=== PATIENT | female | born 1970 | race Caucasian/White ===

== ENCOUNTER → 2016-09-15 | Outpatient (CLI) | payer MEDICARE, MEDICAID | END | disposition home or self-care (01) | LOC: LAB 12:00 | PROVIDERS: ATTEND Psychiatry & Neurology Psychiatry | DX: F31.9 Bipolar disorder, unspecified (principal); F41.0 Panic disorder [episodic paroxysmal anxiety]; F09 Unspecified mental disorder due to known physiological condition ==

== ENCOUNTER 2017-01-24 19:34 | Emergency (ER) | payer MEDICARE, MEDICAID ==
[~2017-01-24 19:34] MED LIST: GENTAMICIN 0.3% OPHTH OINT 1 APPLIC ONE
[2017-01-24] MEDS ORDERED: SODIUM CHLORIDE 0.9% (FLUSH) 10 ML SYG IV PRN (19:52)
[2017-01-24] MEDS ORDERED: NITROGLYCERIN 0.4 MG 25 EA TAB SL ONE (19:52)
[2017-01-24] MEDS ORDERED: ASPIRIN TABLET 325 MG TAB PO ONE (19:52)
[2017-01-24] MEDS ORDERED: ONDANSETRON INJ 4 MG/2 ML VIAL IV ONE (19:52)
--- NOTE | 2017-01-24 20:13 | RAD ---
EXAM DESCRIPTION: Chest,1 View CLINICAL HISTORY: 46 years Female chest pain since this a.m., left shoulder pain COMPARISON: 06/19/2013 FINDINGS: The cardiomediastinal silhouette appears unremarkable. No consolidating infiltrates or pleural effusions. No pneumothorax. Poor degree of inspiration with a small amount of compressive atelectasis in the lung bases. IMPRESSION: Poor degree of inspiration with small amount of basilar atelectasis Electronically signed by: Tameka Beltran 01/24/2017 8:11 PM CDT
[2017-01-24] MEDS ORDERED: SODIUM CHLORIDE 0.9% 1000ML 1,000 ML IVS ONE (22:09)
--- NOTE | 2017-01-24 22:11 | ED.PDOC ---
History of Present Illness - General Chief Complaint: Chest Pain/TX Stated Complaint: chest pain, n/v Time Seen by Provider: 01/24/17 21:58 Source: patient Exam Limitations: no limitations - History of Present Illness Initial Comments: Ally Campbell 46 y/o female with history of MARIAMA-,bipolar Schizoaffective disorder ptsd stated that she had onset of sharp chest pains intermittent w/c started at 10 am today while at home resting went to [employer] but unable to wait then drove back here accompanied by a friend.Denies diaphoresis ,sob ,n/ v Timing/Duration: 7-24 hours, intermittent Severity/Quality: moderate, sharp Location: other - left side Chest Pain Radiation: arms - left Activities at Onset: emotional stress Prior Chest Pain/Cardiac Workup: no prior chest pain, no prior cardiac workup Improving Factors: nothing Worsening Factors: nothing Nitro Today/Relief: no nitro taken today Aspirin Treatment Today: no aspirin today Associated Symptoms: denies symptoms Allergies/Adverse Reactions: Allergies Penicillins Allergy (Verified 01/24/17 20:22) Home Medications: Ambulatory Orders Hardy 12/01/14 Seroquel 12/01/14 Xanax 12/01/14 Review of Systems - Review of Systems Constitutional: States: no symptoms reported EENTM: States: no symptoms reported Respiratory: States: no symptoms reported Cardiology: States: see HPI Genitourinary: States: no symptoms reported Musculoskeletal: States: no symptoms reported Skin: States: no symptoms reported Neurological: States: anxiety, emotional problems Endocrine: States: no symptoms reported Hematologic/Lymphatic: States: no symptoms reported Past Medical History (General) - Patient Medical History Hx Asthma: No Hx Cardiac Disorders: No Hx Congestive Heart Failure: No Hx Diabetes: No Hx Other PMH: Yes - PTSD,Bipolar,Schizoaffective disorder;MARIAMA Surgical History: cholecystectomy, Hysterectomy, other - hysterectomy,hernia hiatal repair - Vaccination History Hx Tetanus, Diphtheria Vaccination: No Hx Influenza Vaccination: No Hx Pneumococcal Vaccination: No Immunizations Up to Date: No - Social History Hx Tobacco Use: No Hx Alcohol Use: No Hx Substance Use: No Hx Substance Use Treatment: No Hx Depression: No Family Medical History - Family History Mother Family History: Unknown Hx Family Stroke: Yes - sister -brain aneurysm Hx Cardiac Disease: Yes - dad Physical Exam - Physical Exam General Appearance: Alert, Anxious, Comfortable, No apparent distress Eyes, Ears, Nose, Throat Exam: PERRL/EOMI, normal ENT inspection, TMs normal Neck: non-tender, full range of motion, supple, normal inspection Respiratory: chest non-tender, lungs clear, normal breath sounds, no respiratory distress Cardiovascular/Chest: normal peripheral pulses, regular rate, rhythm, no murmur Gastrointestinal/Abdominal: normal bowel sounds, non tender, soft, no organomegaly Extremity: normal range of motion, no pedal edema, no calf tenderness Neurologic: alert, oriented x 3 Skin Exam: normal color, warm/dry Lymphatic: no adenopathy Progress - Progress Progress: 01/24/17 22:23 Vital Signs - 8 hr 01/24/17 01/24/17 01/24/17 19:51 20:02 21:23 Temperature 97.1 F L Pulse Rate 75 75 Pulse Rate [ 75 72 68 left] Respiratory 16 18 18 Rate Blood Pressure 139/73 104/58 [left] O2 Sat by Pulse 92 L 94 L Oximetry 01/24/17 19:52 IV Care:Saline Lock per Protoc ONCE Telemetry .ONCE Sodium Chloride 0.9% (Flush) [Saline Flush Syringe] 10 ml IV PRN PRN EKG Assessment ONCE EKG Stat Pulse Ox Stat Pulse Oximetry Assessment DAILY 01/24/17 22:09 Sodium Chloride 0.9% 1000ML [Ns 1000 ml] 1,000 ml IVS ONCE Laboratory Results - last 24 hr 01/24/17 01/24/17 20:10 20:10 WBC 18.6 H RBC 5.34 Hgb 16.9 H Hct 50.0 H MCV 93.6 MCH 31.6 H MCHC 33.8 RDW 13.3 Plt Count 319 MPV 9.5 Absolute Neuts (auto) 12.10 H Absolute Lymphs (auto) 4.40 H Absolute Monos (auto) 1.70 H Absolute Eos (auto) 0.20 Absolute Basos (auto) 0.10 Neutrophils % 65.4 Lymphocytes % 23.5 Monocytes % 9.3 H Eosinophils % 1.1 Basophils % 0.7 PT 11.1 INR 0.980 PTT (SP) 31.7 D-Dimer, Quantitative < 230 Sodium 134 L Potassium 3.6 Chloride 100 L Carbon Dioxide 22 Anion Gap 15.6 BUN 12 Creatinine 0.72 BUN/Creatinine Ratio 16.7 Random Glucose 124 H Serum Osmolality 269.4 L Calcium 9.2 Magnesium 1.9 Creatine Kinase 80 CK-MB (CK-2) 0.9 CK-MB (CK-2) % Not Reportable Troponin I < 0.02 B-Natriuretic Peptide 9.0 01/24/17 22:26 Patient refusing more blood draw and giving urine sample wants to go home after telling her ekg was normal and cardiac enzymes normal - EKG/XRAY/CT EKG: Sinus, no ST T wave changes Comments: Heart rate-75 XRAY: chest - no effusion,no pneumothorax ,no consolidation Departure - Departure Clinical Impression: Chest pain Qualifiers: Chest pain type: unspecified Qualified Code(s): R07.9 - Chest pain, unspecified Time of Disposition: 22:28 Disposition: Left Against Medical Advice Condition: Fair Departure Forms: ED Discharge - Pt. Copy, Patient Portal Self Enrollment Referrals: CHAITANYA SUTTON [Primary Care Provider] - 1-2 Weeks Home Medications: Ambulatory Orders Hardy 12/01/14 Seroquel 12/01/14 Xanax 12/01/14 Additional Instructions: RETURN TO EMERGENCY ROOM NEEDED
[2017-01-24] MEDS ORDERED: hydrOXYzine PAMOATE 25 MG CAP PO ONE (22:25)
[2017-01-25] MEDS ORDERED: LIDOCAINE 2 % GEL 5 ML TUBE TOP ONE (00:13)
--- NOTE | 2017-01-25 01:56 | ED.PDOC ---
History of Present Illness - General Chief Complaint: Laceration Stated Complaint: laceration to rt eye Time Seen by Provider: 01/25/17 01:55 Source: patient Exam Limitations: no limitations - History of Present Illness Initial Comments: Ally Barnes 46 y/o female initally seen here tonight for chest pain symptoms but went home ama after a repeat blood test was requested declined further testing. Her cardiac enzymes and ekg were normal.Then as she was about to lay in bed she slipped and fell face down sustaining laceration on her right upper eyelid and cheeks. Timing/Duration: just prior to arrival, this evening Severity: moderate Location: face Improving Factors: nothing Worsening Factors: nothing Associated Symptoms: denies symptoms Allergies/Adverse Reactions: Allergies Penicillins Allergy (Verified 01/24/17 20:22) Home Medications: Ambulatory Orders Lester 12/01/14 Seroquel 12/01/14 Xanax 12/01/14 Review of Systems - Review of Systems Constitutional: States: no symptoms reported EENTM: States: see HPI Respiratory: States: no symptoms reported Cardiology: States: see HPI Gastrointestinal/Abdominal: States: no symptoms reported Genitourinary: States: no symptoms reported Musculoskeletal: States: no symptoms reported Skin: States: see HPI Neurological: States: anxiety, emotional problems Endocrine: States: no symptoms reported Past Medical History (General) - Patient Medical History Hx Asthma: No Hx Cardiac Disorders: No Hx Congestive Heart Failure: No Hx Diabetes: No Hx Other PMH: Yes - PTSD,MARIAMA,SCHIZOAFFECTIVE DISORDER Surgical History: cholecystectomy, other - hysterectomy,hiatal hernia repair - Vaccination History Hx Tetanus, Diphtheria Vaccination: No Hx Influenza Vaccination: No Hx Pneumococcal Vaccination: No - Social History Hx Tobacco Use: No Hx Alcohol Use: No Hx Substance Use: No Hx Substance Use Treatment: No Hx Depression: No Family Medical History - Family History Mother Family History: Unknown Hx Family Stroke: Yes - sister -brain aneurysm Hx Cardiac Disease: Yes - dad Physical Exam - Physical Exam General Appearance: Alert, Anxious, No apparent distress Eyes, Ears, Nose, Throat Exam: PERRL/EOMI, normal ENT inspection, TMs normal, pharynx normal, other - subconjunctival hemoorhage right eyeball VA-intact; no loose teeth Neck: non-tender, full range of motion, supple Cardiovascular/Chest: normal peripheral pulses, regular rate, rhythm, no murmur Respiratory: chest non-tender, lungs clear, normal breath sounds Gastrointestinal/Abdominal: normal bowel sounds, non tender, soft Extremity: normal range of motion, non-tender, no calf tenderness Neurologic: no motor/sensory deficits, alert, oriented x 3 Skin Exam: warm/dry, normal color Skin Problem Location: face - 3.5 cm laceration right cheek; 3 cm laceration right upper lid Skin Character: other - laceration Progress - Results/Orders Results/Orders: Vital Signs - 8 hr 01/25/ 01:47 Temperature 97.9 F Pulse Rate [ 69 left] Respiratory 22 Rate Blood Pressure 102/58 [left] O2 Sat by Pulse 96 Oximetry - EKG/XRAY/CT CT Ordered: Yes - face no orbital fracture Procedures - Laceration/Wound Repair Right Cheek Wound Length (cm): 3.5 - deep sq layer Wound's Depth, Shape: linear Wound Explored: no foreign body removed Irrigated w/ Saline (cc's): 30 Betadine Prep?: Yes Anesthesia: 1% Lidocaine Volume Anesthetic (cc's): 7 Wound Repaired With: sutures, steri-strips, dermabond Suture Size/Type: 5:0, vicryl rapide Number of Sutures: 5 Deep Layer Suture Size/Type: 5:0, vicryl rapide Number Deep Layer Sutures: 4 Sterile Dressing Applied?: Yes Right Eye Wound Length (cm): 3 Wound's Depth, Shape: into muscle, linear Wound Explored: no foreign body removed Irrigated w/ Saline (cc's): 20 Betadine Prep?: Yes Anesthesia: 1% Lidocaine Volume Anesthetic (cc's): 7 Wound Repaired With: sutures, steri-strips, dermabond Suture Size/Type: 5:0, vicryl rapide Number of Sutures: 2 Layer Closure?: Yes Deep Layer Suture Size/Type: 5:0, vicryl rapide Number Deep Layer Sutures: 2 Sterile Dressing Applied?: Yes Departure - Departure Clinical Impression: Fall against object, Subconjunctival hemorrhage of right eye Laceration, eyelid, right Qualifiers: Encounter type: initial encounter Qualified Code(s): S01.111A - Laceration without foreign body of right eyelid and periocular area, initial encounter Laceration of cheek without complication Qualifiers: Encounter type: initial encounter Laterality: right Qualified Code(s): S01.411A - Laceration without foreign body of right cheek and temporomandibular area, initial encounter Time of Disposition: 04:29 Disposition: Discharge to Home or Self Care Condition: Fair Departure Forms: ED Discharge - Pt. Copy, Patient Portal Self Enrollment Instructions: How to Care for a Laceration After Repair, DI for Laceration Repair -- Complex Referrals: CHAITANYA SUTTON [Primary Care Provider] - 1-2 Weeks Home Medications: Ambulatory Orders Lester 12/01/14 Seroquel 12/01/14 Xanax 12/01/14 Additional Instructions: RETURN TO [facility] 01/30 2017 for removal of sutures;Gentamicin eye ointment apply to right eye 3 x a day for 5 days;Return to emergency room as needed
[2017-01-25 01:58] VITALS: BP 102/58; TEMP 97.9; O2SAT 96
[2017-01-25] MEDS ORDERED: LIDOCAINE 1% 10 ML VIAL INJ ONE (02:36)
--- NOTE | 2017-01-25 04:16 | CT ---
EXAM: CT sinuses without contrast. INDICATION: Fall. TECHNIQUE: Contiguous axial CT images of the sinuses. Intravenous contrast: Absent. Reformats: MPRs created and utilized. DLP 654 mGy-cm. This exam was performed according to our departmental dose-optimization program, which includes automated exposure control, adjustment of the mA and/or kV according to patient size and/or use of iterative reconstruction technique. COMPARISON: None. FINDINGS: Subcutaneous: There is mild soft tissue swelling with subcutaneous emphysema along the right maxillary region. No radiopaque foreign body Globes: Unremarkable. No retro-orbital hematoma. Orbits: Intact. Mandible: Intact. Maxilla: Intact. Nasal bones/septum: Intact. Zygomatic arches: Intact. Paranasal sinuses: Visualized portions are aerated. IMPRESSION: No acute fracture or dislocation. Clear paranasal sinuses. Mild soft tissue swelling with subcutaneous emphysema along the right maxillary region. Electronically signed by: Giovanni Sanchez MD 01/25/2017 4:15 AM CDT Workstation: [id number]
== END 2017-01-24 22:44 | disposition left against medical advice (07) ==
LOC: ER 19:34
DX: R07.9 Chest pain, unspecified (principal); F31.9 Bipolar disorder, unspecified; F25.9 Schizoaffective disorder, unspecified; F43.10 Post-traumatic stress disorder, unspecified; Z88.0 Allergy status to penicillin; Z79.899 Other long term (current) drug therapy

== ENCOUNTER 2017-02-12 23:43 | Observation (INO) | payer MEDICARE, MEDICAID ==
[2017-02-13] MEDS ORDERED: SODIUM CHLORIDE 0.9% (FLUSH) 10 ML SYG IV PRN (00:15)
[2017-02-13] MEDS ORDERED: PROMETHAZINE HCL INJ 25 MG in SODIUM CHLORIDE 0.9% 50ML 50 ML IVPB ONE (00:24)
--- NOTE | 2017-02-13 00:26 | ED.PDOC ---
History of Present Illness - General Chief Complaint: General Stated Complaint: vomiting, unable to sleep, chest discomfort Time Seen by Provider: 02/12/17 23:59 Source: patient Exam Limitations: no limitations - History of Present Illness Initial Comments: 1 mo OF INSOMNIA. NO LONGER TAKES SEROQUEL, XANAX, NOR LITHIUM. SEES A AND IS ON RX SLEEP MEDICATIONS BUT THEY JUST AREN'T WORKING YET. TODAY STARTED THE OTHER SX: N/V, COUGH. CHEST PAIN STARTED TONIGHT. H/O MARIAMA, BIPOLAR, SCHIZOAFFECTIVE DISORDER, PTSD. HERE 2 WKS AGO FOR CP; REFUSED 2ND SET OF LABS. SMOKES Severity: moderate Improving Factors: nothing Worsening Factors: nothing Associated Symptoms: chest pain, nausea/vomiting Allergies/Adverse Reactions: Allergies Penicillins Allergy (Verified 01/24/17 20:22) Review of Systems - Review of Systems Constitutional: States: diaphoresis. Denies: fever EENTM: Denies: blurred vision, ear pain, nose congestion Respiratory: States: cough. Denies: short of breath Cardiology: States: chest pain. Denies: palpitations Gastrointestinal/Abdominal: States: nausea, vomiting. Denies: abdominal pain, constipation, diarrhea Genitourinary: Denies: discharge, dysuria, frequency, hematuria Musculoskeletal: States: no symptoms reported Skin: States: no symptoms reported Neurological: States: no symptoms reported Endocrine: States: no symptoms reported Hematologic/Lymphatic: States: no symptoms reported All other Systems: Reviewed and Negative Past Medical History (General) - Patient Medical History Hx Asthma: No Hx Cardiac Disorders: No Hx Congestive Heart Failure: No Hx Diabetes: No Surgical History: Hysterectomy, other - Vaccination History Hx Tetanus, Diphtheria Vaccination: No Hx Influenza Vaccination: No Hx Pneumococcal Vaccination: No - Social History Hx Tobacco Use: Yes Hx Alcohol Use: Yes - occasional Hx Substance Use: No Hx Substance Use Treatment: No Hx Depression: No - Female History Patient : No Family Medical History - Family History Mother Family History: Unknown Hx Family Stroke: Yes - sister -brain aneurysm Hx Cardiac Disease: Yes - dad Physical Exam - Physical Exam General Appearance: Alert, Other - APPEARS OLDER THAN STATED AGE. Eye Exam: bilateral normal Ears, Nose, Throat: hearing grossly normal, normal ENT inspection, normal pharynx Neck: non-tender, full range of motion, supple Respiratory: chest non-tender, lungs clear, no respiratory distress Cardiovascular/Chest: regular rate, rhythm, no edema, no gallop, no JVD, no murmur Peripheral Pulses: radial,right: 2+, radial,left: 2+ Gastrointestinal/Abdominal: normal bowel sounds, non tender, soft Back Exam: normal inspection, no CVA tenderness Extremity: normal range of motion, non-tender Neurologic: occupational health nurse II-XII nml as tested, alert, oriented x 3 Skin Exam: normal color, warm/dry Lymphatic: no adenopathy Progress - Results/Orders Results/Orders: I SPOKE WITH PHUC MONTEIRO, HOSPITALIST BLOW MOLD TECHNICIAN. SHE SAID IF 1ST 2 SETS OF CARDIAC ENZ ARE NEG, THEN SHE WILL ADMIT OBS FOR CHEST PAIN R/O. EKG NSR. I HAVE ORDERED 1ST 2 SETS OF ENZ AND OTHER CP W/U. CLINCALLY SHE IS NOT IN HEART FAILURE (NO JVD, NO EDEMA, NO CRACKLES, NO SOB), THUS BNP NOT INDICATED. VSS, NO SOB, EKG NSR, NO LOWER EXTREMITY DISCOMFORT THUS LOW SUSPICION FOR P.E. THUS D-DIMER NOT INDICATED. N/V - GAVE PHENERGAN X 1 INSOMNIA - NO MEDS GIVEN, THOUGH SIDE EFFECT OF PHENERGAN IS FATIGUE SO IT MIGHT HELP HER SLEEP TONIGHT. COUGH - CXR PENDING. CXR NEG. CMP NEG. CBC = WBC 12. CARD ENZ 1ST SET: TROP 0.06. NL RANGE 0.01 - 0.05. CKMB AND CPK NEG. 2ND SET TROP DROPPED TO 0.05. 1ST 2 SETS OF CARD ENZ NEG. I JUST TALKED TO PHUC THANIA AND SHE SAID ADMIT THE PT OBS FOR C.P. R/O. - EKG/XRAY/CT EKG: Sinus Departure - Departure Clinical Impression: Cough in adult, Insomnia, Nausea and vomiting, Acute chest pain Disposition: Admit Patient Condition: Fair Departure Forms: ED Discharge - Pt. Copy, Patient Portal Self Enrollment Instructions: No More Sleepless Nights: Dealing With Insomnia Referrals: CHAITANYA SUTTON [Primary Care Provider] - 1-2 Weeks Decision To Admit - Decistion To Admit Decision to Admit Reason: Admit from ER - FOR CHEST PAIN RULE OUT.
[2017-02-13] MEDS ORDERED: SODIUM CHLORIDE 0.9% 50ML 50 ML ONE (00:28)
[2017-02-13] MEDS ORDERED: PROMETHAZINE HCL INJ 25 MG/ML VIAL ONE (00:28)
--- NOTE | 2017-02-13 00:29 | RAD ---
EXAM: Single view chest. INDICATION: Chest pain. COMPARISON: Chest x-ray: 01/24/2017. FINDINGS: Cardiac silhouette: Unremarkable. Courtney: Unremarkable. Lobar consolidation: None. Pleural effusion: None. Pneumothorax: None. Other: None. Bones: Unremarkable. Other: None. IMPRESSION: 1. No acute cardiopulmonary process. Electronically signed by: Giovanni Sanchez MD 02/13/2017 12:28 AM CDT Workstation: [id number]
[2017-02-13] MEDS ORDERED: POTASSIUM CHLORIDE 20 MEQ TAB PO ONE (08:01)
[2017-02-13] MEDS ORDERED: ASPIRIN TABLET 325 MG TAB PO SCH (09:00)
[2017-02-13] MEDS ORDERED: SODIUM CHLORIDE 0.9% (FLUSH) 10 ML SYG IV SCH (09:00)
[2017-02-13 16:18] VITALS: BP 132/70; TEMP 98.6; O2SAT 98
--- NOTE | 2017-02-13 19:41 | SSS ---
DATE OF DISCHARGE: 02/13/17 SUPERVISING PHYSICIAN: Gordo Hanson M.D. DISCHARGE DIAGNOSES: 1. Chest pain rule out myocardial infarction with initial cardiac enzymes that were negative except for the troponin which was slightly elevated at 0.05 and subsequent cardiac enzymes were negative. 2. Anxiety. 3. Bipolar disorder. 4. Schizoaffective disorder. 5. History of tobacco abuse, smoking 1-1/2 packs of cigarettes per day. 6. Insomnia. HISTORY OF PRESENT ILLNESS: This is a 46 year-old female patient who came to the Emergency Room with complaints of 1 month of insomnia. She had been switched off of her Seroquel and started on Latuda. She had called and gotten something for sleep and she had just recently been put on Lunesta. She came to the Emergency Room because she had a new onset of chest pain. She also has some nausea and vomiting with a cough. Her initial set of cardiac enzymes had a creatinine of 80, CK-MB of 1.7 and troponin 0.06. One hour later her troponin was normal at 0.05. Potassium was slightly low at 3.4. The rest of her electrolytes and liver functions were within normal limits. WBCs were slightly elevated at 12 with hemoglobin 16.5 and 48.9. Neutrophils were 52.6%. Chest x-ray per radiology interpretation showed no acute cardiopulmonary process. I was called for admission to the hospital for observation. PAST MEDICAL HISTORY: 1. Anxiety. 2. Bipolar disorder. 3. Schizoaffective disorder. 4. Posttraumatic stress disorder. PAST SURGICAL HISTORY: 1. Tubal ligation. 2. Hysterectomy. 3. Cholecystectomy. OUTPATIENT MEDICATIONS: 1. Latuda. 2. Lunesta. 3. Clonazepam. 4. Xanax. ALLERGIES: PENICILLIN AND CODEINE. FAMILY HISTORY: Father has a significant history of congestive heart failure. Her sister has valvular heart disease. SOCIAL HISTORY: She is . She is disabled. She smokes 1-1/2 packs of cigarettes per day and she has since she was a teenager. She occasionally drinks an alcoholic beverage. She denies any illicit drug use. REVIEW OF SYSTEMS: GENERAL: Complains of fatigue. Denies weight changes or fever. HEENT: Denies sinus symptoms, ear pain, vision changes or sore throat. RESPIRATORY: She complains of cough. Denies wheezing or shortness of breath. CARDIOLOGY: Complained of chest pain in the Emergency Room but upon admission she has no complaints of chest pain, palpitations or tachycardia. GASTROINTESTINAL: Complains of some mild nausea and vomiting that improves with Phenergan. Denies abdominal pain or constipation. GENITOURINARY: Denies hematuria, dysuria or polyuria. SKIN: Denies lesions or rashes. NEUROLOGIC: Positive for sleeplessness and insomnia. Denies dizziness, headaches or seizures. PHYSICAL EXAMINATION: VITAL SIGNS: She is afebrile, heart rate 87, sinus rhythm on the electrical subcontractor, blood pressure 138/72, respiratory rate 16, O2 sat is 97% on room air. GENERAL: This is a 45 year-old female patient who is lying in her hospital bed. She is in no acute distress. HEENT: Normocephalic and atraumatic. Pupils are equal and reactive. NECK: Supple without mass. There is no jugular venous distention. CHEST: Clear to auscultation bilaterally. There is equal rise and fall of the chest with inspiration and expiration. CARDIOVASCULAR: Regular rate and rhythm. ABDOMEN: Soft, nondistended, non-tender. Bowel sounds are positive. EXTREMITIES: No cyanosis, clubbing or edema. NEUROLOGIC: She is awake, alert and oriented times three. LABORATORY: Labs and films are as per the history of present illness with the addition of her second and third set of cardiac enzymes that were negative. DISCHARGE PLAN: The patient will be discharged home in stable condition. She is to resume her previous medications and keep her appointment with her psychologist in [place]. She does not have a primary care physician, so I have gotten her an appointment with Vianney Han on 02/21/17 at 10:00 AM. It is recommended that she have a cardiac workup as well as stress test within the next week or so. I also called Dr. Longoria's office in [place]. His Nurse Practitioner, Alexa Landry, we discussed the patient's case and she agreed that she did need a cardiac workup given her slightly elevated troponin as well as her significant family history of heart disease. Dr. Longoria's office has agreed to see her on 03/01/17 at 3:45 PM. It is possible we can get her stress test done prior to that time. She is to resume her previous medications. I have given her a home prescription of Phenergan for the nausea. She has been given ER warnings in that she is to return to the Emergency Room for any complaints of chest pain until she is evaluated. I will also give her some Nitroglycerin. She is to call [facility] or return to the hospital for any problems. DISCHARGE MEDICATIONS: 1. Latuda. 2. Lunesta. 3. Klonopin. 4. Xanax. 5. Phenergan p.o. 6. Nitroglycerin. Dr. Hanson is the collaborating physician available for consultation. #[id number] [facility]
[2017-02-13] MEDS ORDERED: LURASIDONE HCL 60 MG PO SCH (21:00)
[2017-02-13] MEDS ORDERED: ESZOPICLONE 1 MG TAB PO SCH (21:00)
== END 2017-02-13 17:55 | disposition home or self-care (01) ==
LOC: ER 23:43 → MS 02-13 02:38
PROVIDERS: ADMIT Nurse Practitioner Acute Care; ATTEND Nurse Practitioner Acute Care
DX: R07.89 Other chest pain (principal); F41.9 Anxiety disorder, unspecified; F31.9 Bipolar disorder, unspecified; F25.9 Schizoaffective disorder, unspecified; F17.210 Nicotine dependence, cigarettes, uncomplicated; G47.00 Insomnia, unspecified; R11.2 Nausea with vomiting, unspecified; E87.6 Hypokalemia; F43.10 Post-traumatic stress disorder, unspecified; Z79.899 Other long term (current) drug therapy; Z88.0 Allergy status to penicillin; Z88.6 Allergy status to analgesic agent; Z90.49 Acquired absence of other specified parts of digestive tract; Z90.710 Acquired absence of both cervix and uterus; Z82.49 Family history of ischemic heart disease and other diseases of the circulatory system
CPT/HCPCS: 36415 ×4; 71010; 80053; 82550 ×3; 82553 ×3; 84484 ×4; 85025; 93005 ×2; 94760; 96365; 99284; A4216; J2550

== ENCOUNTER → 2017-03-01 | Outpatient (CLI) | payer MEDICARE, MEDICAID ==
--- NOTE | 2017-03-01 16:26 | RAD ---
EXAM DESCRIPTION: Sinuses Series CLINICAL HISTORY: 46 years Female, SOFT TISSUE DISORDER, LACERATION RT EYELID COMPARISON: None. FINDINGS: Two views of the paranasal sinuses demonstrate normal pneumatization without air-fluid level or opacification. Or midline shift of the nasal septum. The bony structures are normal. No foreign body over the area of the right orbital or supraorbital region is seen. No bony fracture is noted. IMPRESSION: Negative soft tissue views of the sinuses and orbital region. Electronically signed by: Gordo Baker MD 03/01/2017 4:25 PM CDT
== END | disposition home or self-care (01) ==
LOC: YCFC.O 08:32
PROVIDERS: ATTEND Nurse Practitioner Family
DX: M79.89 Other specified soft tissue disorders (principal)

== ENCOUNTER 2017-06-22 11:58 | Emergency (ER) | payer MEDICARE, MEDICAID ==
[2017-06-22] MEDS ORDERED: FLUMAZENIL 0.1 MG/ML VIAL ONE ×2 (12:01)
[2017-06-22] MEDS ORDERED: FLUMAZENIL 0.1 MG/ML VIAL IV ONE ×2 (12:06→13:30)
[2017-06-22] MEDS ORDERED: SODIUM CHLORIDE 0.9% 1000ML 1,000 ML IVS ONE (12:10)
[2017-06-22] MEDS ORDERED: POTASSIUM CHLORIDE INJ 40 MEQ 40 MEQ in SODIUM CHLORIDE 0.9% 250ML 250 ML IVPB ONE (13:01)
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
[2017-06-22] MEDS ORDERED: SODIUM CHLORIDE 0.9% 250ML 250 ML ONE (14:37)
[2017-06-22] MEDS ORDERED: POTASSIUM CHLORIDE 40mEq 20ML VIAL ONE (14:37)
[2017-06-23 19:27] VITALS: BP 111/64; TEMP 97.2; O2SAT 96
== END 2017-06-22 15:00 | disposition short-term general hospital (02) ==
LOC: ER 11:58
DX: T42.4X2A Poisoning by benzodiazepines, intentional self-harm, initial encounter (principal); D72.829 Elevated white blood cell count, unspecified; F32.9 Major depressive disorder, single episode, unspecified; F41.9 Anxiety disorder, unspecified; F17.200 Nicotine dependence, unspecified, uncomplicated; Z91.5 Personal history of self-harm; Z79.82 Long term (current) use of aspirin; Z79.899 Other long term (current) drug therapy; Z88.0 Allergy status to penicillin
CPT/HCPCS: 36415; 80053; 80320; 80329; 83735; 85025; 93005; J3480; J7050

== ENCOUNTER → 2017-08-09 | Outpatient (CLI) | payer MEDICARE, MEDICAID | LOC: LAB.O 08:12 | DX: G81.90 Hemiplegia, unspecified affecting unspecified side (principal); I63.9 Cerebral infarction, unspecified ==

== ENCOUNTER 2017-08-24 11:47 | Emergency (ER) | payer MEDICARE, MEDICAID ==
[2017-08-24 12:03] VITALS: TEMP 97.7
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
[2017-08-24] MEDS ORDERED: LORazepam 0.5 MG TAB PO ONE (13:28)
[2017-08-24] MEDS ORDERED: LORazepam 0.5 MG TAB ONE (13:30)
[2017-08-24 14:37] VITALS: BP 139/102; O2SAT 96
== END 2017-08-24 14:36 | disposition home or self-care (01) ==
LOC: ER 11:47
DX: R20.0 Anesthesia of skin (principal); F41.9 Anxiety disorder, unspecified

== ENCOUNTER 2017-10-23 08:54 | Emergency (ER) | payer MEDICARE, MEDICAID ==
[2017-10-23 09:02] VITALS: TEMP 97.7
[2017-10-23] MEDS ORDERED: ASPIRIN TABLET 325 MG TAB PO ONE (09:23)
[2017-10-23] MEDS ORDERED: TEMAZEPAM 15 MG CAP PO ONE (09:24)
[2017-10-23] MEDS ORDERED: QUEtiapine FUMARATE 100 MG TAB PO ONE (09:25)
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
--- NOTE | 2017-10-23 11:07 | RAD ---
EXAM DESCRIPTION: Chest,1 View CLINICAL HISTORY: 47 years Female, chest discomfort COMPARISON: Previous study February 13, 2017 TECHNIQUE: AP portable chest. FINDINGS: Heart size is prominent with normal pulmonary vascularity. No consolidating infiltrate. No pulmonary mass or worrisome nodule. No pneumothorax or pleural effusion. Bones are unremarkable. IMPRESSION: No acute process is identified in the chest. Electronically signed by: Albert Denise MD 10/23/2017 11:06 AM CDT
[2017-10-23] MEDS ORDERED: IPRATROPIUM/ALBUTEROL 3 ML VIAL NEB ONE (11:09)
[2017-10-23 12:30] VITALS: BP 126/81; O2SAT 99
== END 2017-10-23 12:57 | disposition left against medical advice (07) ==
LOC: ER 08:54
DX: R00.2 Palpitations (principal); F31.9 Bipolar disorder, unspecified; F19.10 Other psychoactive substance abuse, uncomplicated; Z91.19 Patient's noncompliance with other medical treatment and regimen; Z86.73 Personal history of transient ischemic attack (TIA), and cerebral infarction without residual deficits; Z79.82 Long term (current) use of aspirin; Z79.899 Other long term (current) drug therapy

== ENCOUNTER 2017-11-17 19:48 | Emergency (ER) | payer MEDICARE, MEDICAID ==
[2017-11-17 20:03] VITALS: BP 152/98; TEMP 97.9; O2SAT 97
== END 2017-11-17 20:18 | disposition left against medical advice (07) ==
LOC: ER 19:48
DX: Z53.21 Procedure and treatment not carried out due to patient leaving prior to being seen by health care provider (principal)

== ENCOUNTER 2017-11-25 08:05 | Emergency (ER) | payer MEDICARE, MEDICAID ==
[2017-11-25] MEDS ORDERED: BENZTROPINE MESYLATE TAB 1 MG TAB PO ONE (08:33)
[2017-11-25 08:34] VITALS: TEMP 97.1
[2017-11-25] MEDS ORDERED: SODIUM CHLORIDE 0.9% 1000ML 1,000 ML ONE (09:00)
[2017-11-25] MEDS ORDERED: SODIUM CHLORIDE 0.9% 1000ML 1,000 ML IVS ONE (09:09)
[2017-11-25] MEDS ORDERED: POTASSIUM CHLORIDE ELIXIR 20 MEQ/15 ML UD PO ONE (09:24)
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
[2017-11-25 10:45] VITALS: BP 112/57; O2SAT 98
== END 2017-11-25 10:45 | disposition home or self-care (01) ==
LOC: ER 08:05
DX: T43.591A Poisoning by other antipsychotics and neuroleptics, accidental (unintentional), initial encounter (principal); R40.0 Somnolence; F13.10 Sedative, hypnotic or anxiolytic abuse, uncomplicated; E87.6 Hypokalemia; Z91.14 Patient's other noncompliance with medication regimen; F31.9 Bipolar disorder, unspecified; R00.0 Tachycardia, unspecified; Z86.73 Personal history of transient ischemic attack (TIA), and cerebral infarction without residual deficits; Z79.899 Other long term (current) drug therapy
CPT/HCPCS: 36415; 80053; 80329; 85025; 93005; J7030

== ENCOUNTER → 2017-12-13 | Outpatient (CLI) | payer MEDICARE, MEDICAID ==
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
== END ==
LOC: CT 11:00
PROVIDERS: ATTEND Psychiatry & Neurology Neurology
DX: I63.412 Cerebral infarction due to embolism of left middle cerebral artery (principal)

== ENCOUNTER 2018-06-27 14:16 | Emergency (ER) | payer MEDICAID, MEDICARE, OTHER ==
[2018-06-27 14:38] VITALS: TEMP 98.5
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
[2018-06-27 15:27] VITALS: BP 121/85; O2SAT 98
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
== END 2018-06-27 15:58 | disposition home or self-care (01) ==
LOC: ER 14:16
DX: S16.1XXA Strain of muscle, fascia and tendon at neck level, initial encounter (principal); F32.9 Major depressive disorder, single episode, unspecified; Z86.19 Personal history of other infectious and parasitic diseases; Z87.891 Personal history of nicotine dependence; Z88.0 Allergy status to penicillin; Z79.899 Other long term (current) drug therapy; V49.60XA Unspecified car occupant injured in collision with unspecified motor vehicles in traffic accident, initial encounter; Y92.410 Unspecified street and highway as the place of occurrence of the external cause